=== PATIENT | male | born 1960 | race Caucasian/White ===

== ENCOUNTER 2024-06-03 16:15 | Inpatient (IN) | payer BC, SELFPAY ==
[2024-06-03] VITALS (19 sets, daily range): BP systolic 133–172; BP diastolic 81–109; PULSE 63–88; RESP 11–23; TEMP 36.3; O2SAT 90–100
--- NOTE | ~2024-06-03 | CT_ITS ---
EXAMINATION: CTA [facility] DATE: 06/03/2024 20:21 INDICATION: TECHNIQUE: Computed tomography angiography (CTA) of the lower extremities was performed with 100 mL O mnipaque-350 intravenous contrast timed to evaluate the pulmonary arteries. Coronal maximum intensity projection 3D-reconstructions were created by the technologist. Automated exposure control and itera tive reconstruction technique were employed. Exam dose: 831.06 mGy-cm total exam DLP. COMPARISON: None. FINDINGS: There is atherosclerotic calcification of the included distal abdominal aorta as well as th e common, internal and external iliac arteries, common femoral arteries and femoral arteries. No sign ificant luminal stenosis or occlusion of these vessels. The popliteal arteries and the trifurcation arteries are intact with three-vessel arterial runoff int o both distal lower legs. The dorsalis pedis and posterior tibial arteries are intact at the feet. IMPRESSION: Atherosclerotic calcifications but no significant arterial stenosis or occlusion of the lower extremities Reviewed, dictated and finalized at [facility]. Reviewed, dictated and finalized at [facility]. 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
--- NOTE | ~2024-06-03 | CT_ITS ---
EXAMINATION: CTA chest abdomen pelvis DATE: 06/03/2024 20:21 INDICATION: Chest pain. Rule out aortic dissection TECHNIQUE: Computed tomography (CT) of the chest was performed with 100 CC Omnipaque 350 intravenous contrast. Automated exposure control and iterative reconstruction technique were employed. Exam dose: 958.24 mGy-cm total exam DLP. COMPARISON: None FINDINGS: Normal heart size. Prominent coronary artery calcifications. No pericardial effusion. No pl eural effusion. No hilar or mediastinal mass lesion or lymphadenopathy. No thoracic aortic aneurysm or dissection. Prominent bulla in the azygos lobe. Occasional bilateral smaller bullae. No pulmonary infiltrate or consolidation or pulmonary mass lesion is noted. There is atherosclerotic calcification but normal caliber of the abdominal aorta, common iliac arteri es and common femoral and proximal femoral arteries. There is no abdominal aortic dissection or aneur ysm. The liver, gallbladder, bile ducts, pancreas, pancreatic duct, spleen, and adrenal glands are unremar kable. There are 2 nonobstructing right renal calculi, the largest measuring 5.7 x 8.6 mm low-attenuation 12 18 Hounsfield units. There is a several millimeter nonobstructing left renal calculus. No ureteral ca lculus or hydroureteronephrosis is noted on either side. The urinary bladder and prostate gland are u nremarkable. No intraperitoneal or retroperitoneal or pelvic mass lesion or adenopathy or ascites. Normal appendix. No bowel obstruction, bowel wall thickening, pneumatosis or intraperitoneal free air . Minimal colonic diverticulosis, without evidence of diverticulitis. No suspicious osteolytic or osteoblastic lesions. IMPRESSION: No thoracic or abdominal aortic aneurysm or dissection Nonobstructive bilateral nephrolithiasis Normal appendix Reviewed, dictated and finalized at [facility]. Reviewed, dictated and finalized at [facility]. 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
--- NOTE | ~2024-06-03 | XR_ITS ---
XR chest 2V DATE: 06/03/2024 16:52 INDICATION: Hypertension TECHNIQUE: PA and lateral views COMPARISON: None FINDINGS: Normal heart size. No hilar or mediastinal enlargement. Azygos lobe, normal variant. Mild bilateral hyperinflation. No pulmonary infiltrate or consolidation, pleural effusion or pulmonar y vascular congestion or pneumothorax is detected. Old healed anterolateral left fifth rib fracture. IMPRESSION: Mild bilateral hyperinflation; otherwise no active cardiopulmonary disease Reviewed, dictated and finalized at [facility]. ETING SYSTEMS ANALYST
--- NOTE | 2024-06-03 16:18 | ECG_ITS ---
Test Date: 2024-06-03 16:23:19 Measurements Intervals [place] Rate: 78 P: 69 [place]: 169 QRS: -53 QRSD: 118 T: 58 QT: 394 QTc: 451 Interpretive Statements SINUS RHYTHM WITH FREQUENT VENTRICULAR PREMATURE COMPLEXES IN A BIGEMINAL PATTERN POSSIBLE RIGHT VENTRICULAR CONDUCTION DELAY [RSR (QR) IN V1/V2] LEFT ANTERIOR FASCICULAR BLOCK [QRS AXIS <= -45, QR IN I, RS IN II] NONSPECIFIC ST ELEVATION [0.05+ mV ST ELEVATION] No previous ECG available for comparison Electronically Signed On 06-03-2024 18:40:26 [employer]THLETIC INSTRUCTOR by Julio Shultz M.D.
[2024-06-03] MEDS: ASPIRIN 81 MG CHEWABLE TABLET 324 MG PO (16:36)
[2024-06-03 16:44] LABS: Basophils Absolute Auto 0.1 K/mm3 (0.0-0.1); Basophils Percent Auto 0.7 % (0.2-1.2); Eosinophils Absolute Auto 0.2 K/mm3 (0-0.3); Eosinophils Percent Auto 1.2 % (0-4.4); Hematocrit 42.5 % (42.0-52.0); Hemoglobin 14.6 g/dL (14.0-18.0); Immature Granulocyte Absolute 0.03 K/mm3 (0.00-0.031); Immature Granulocyte Percent A 0.2 % (0-0.5); Lymphocytes Absolute Auto 2.72 K/mm3 (0.9-3.2); Lymphocytes Percent Auto 22.3 % (18.3-44.2); Mean Corpuscular HGB Conc 34.4 g/dl (32-36); Mean Corpuscular Hemoglobin 30.9 pg (26-34); Mean Platelet Volume 8.9 fl (7.4-10.4); Monocytes Absolute Auto 0.6 K/mm3 (0.1-0.6); Monocytes Percent Auto 4.9 % (2.6-8.5); Neutrophils Absolute Auto 8.6 K/mm3 (1.3-6.7); Neutrophils Percent Auto 70.7 % (45.5-73.1); Platelet Count Result 192 k/mm3 (150-375); Red Blood Count 4.72 M/mm3 (4.6-6.20); Red Cell Distribution Width 12.3 % (11.5-14.5); White Blood Count 12.2 K/mm3 (4.5-10.0)
[2024-06-03 16:55] LABS: Alanine Aminotransferase 20 U/L (6-50); Albumin Level 4.5 g/dL (3.5-5.1); Alkaline Phosphatase 74 U/L (38-126); Anion Gap 4 mmol/L (4-12); Aspartate Amino Transferase 31 U/L (17-59); Bilirubin,Total 1.1 mg/dL (0.2-1.3); Blood Urea Nitrogen 15 mg/dL (9-20); Calcium 9.3 mg/dL (8.4-10.2); Carbon Dioxide 27 mmol/L (22-30); Chloride 106 mmol/L (98-107); Estimated CRCL calculation 94 ml/min; Estimated Glomerular Filt Rate > 60; Glucose 128 mg/dL (65-110); Lipase 54 U/L (23-300); Potassium 3.6 mmol/L (3.4-5.0); Sodium 137 mmol/L (137-145)
[2024-06-03 17:01] LABS: Partial Thromboplastin Time 29.1 Seconds (22.3-36.8); Prothrombin Time 13.4 Seconds (11.1-14.7)
[2024-06-03 17:04] LABS: D Dimer 0.28 ug/mL (<0.48)
[2024-06-03 17:07] LABS: Troponin I 0.316 ng/mL (0.000-0.034)
[2024-06-03 17:15] LABS: Magnesium 1.7 mg/dL (1.6-2.3); Phosphorus 3.3 mg/dL (2.5-4.5)
--- NOTE | 2024-06-03 19:16 | ECG_ITS ---
Test Date: 2024-06-03 19:23:16 Measurements Intervals [place] Rate: 67 P: 6 [place]: 178 QRS: -30 QRSD: 114 T: 5 QT: 397 QTc: 422 Interpretive Statements SINUS RHYTHM BORDERLINE LEFT AXIS DEVIATION [QRS AXIS < -20] INCOMPLETE RIGHT BUNDLE BRANCH BLOCK [90+ ms QRS DURATION, TERMINAL R IN V1/V2, 40+ ms S IN I/aVL/V4/V5/V6] MODERATE T-WAVE ABNORMALITY, CONSIDER LATERAL ISCHEMIA [-0.1+ mV T WAVE IN I/aVL/V5/V6] Compared to ECG 06/03/2024 16:23:19 T-wave abnormality now present Possible ischemia now present Ventricular premature complex(es) no longer present Left anterior fascicular block no longer present Electronically Signed On 06-03-2024 21:05:38 [employer] by Julio Shultz M.D.
[2024-06-03] MEDS: diphenhydrAMINE HCl INJ 50 MG/ML VIAL IV PUSH (19:30)
[2024-06-03] MEDS: HYDROCORTISONE SODIUM SUCCINATE 100 MG/2 ML VIAL 200 MG IV PUSH (19:30)
--- NOTE | 2024-06-03 20:47 | ED.CHESTPAIN ---
HPI - Chest Pain General Chief Complaint: Chest Pain Stated Complaint: chest pain Time Seen by Provider: 06/03/24 16:29 History of Present Illness HPI narrative: 64-year-old male with a past medical history including hypertension not present any kind of medications. Presents to the emergency room with chief complaint of chest pain, chest tightness, bilateral arm pain, lightheadedness, left-sided knee pain. Patient states that symptoms were onset about 1 hour prior to arrival. He has not had anything like them to him before. No history of heart attacks, coronary disease, aortic disease. Does not take any medications presently. States his pain felt better after burping. Denies any numbness or paresthesias presently states that his pain is significantly improved upon arrival to the emergency department. Endorses vague knee discomfort for last week without any trauma or injuries. Has been ambulating unassisted. He states he has been installing ceiling fans at home and attributed his bilateral hand and elbow numbness to the repetitive movements. Related Data Allergies Allergy/AdvReac Type Severity Reaction Status Date / Time No Known Allergies Allergy Unverified 11/04/11 19:19 Review of Systems Review of Systems: As reviewed above in [facility] Social History Social History Smoking status: Former smoker Smoking end date: 06/13/15 Alcohol intake: current Exam Narrative: GENERAL: [Well-appearing, well-nourished, and in no acute distress.] HEAD: [Normocephalic, atraumatic.] EYES: [PERRLA and EOMI.] ENT: Nares clear, no rhinorrhea or epistaxis. Mucous membranes moist. NECK: Supple. CHEST: [Clear to auscultation. No respiratory distress.] HEART: [Regular rate and rhythm]. No murmur heard. 2+ radial pulses, bounding pulses in both arms, right-sided tibial pulse and dorsalis pedis pulse intact, left-sided dorsalis pedis pulse is absent to palpation, otherwise warm extremity with good posterior tibialis pulse no overlying skin changes or discoloration ABDOMEN: [Soft, nondistended], [nontender], [No rigidity or guarding] EXTREMITIES: Normal range of motion. [No edema.] SKIN: Warm, dry, no rash. NEURO: [No focal deficits]. Alert and oriented [x3.] PSYCH: [Normal mood and affect.] Course Vital Signs Vital signs: Vital Signs Temperature 36.3 C L 06/03/24 16:25 Pulse Rate 76 06/03/24 16:25 Respiratory Rate 17 06/03/24 16:25 Blood Pressure 170/96 H 06/03/24 16:25 Pulse Oximetry 99 06/03/24 16:25 Oxygen Delivery Room Air 06/03/24 16:25 Temperature 36.3 C L 06/03/24 16:25 Pulse Rate 63 06/03/24 17:47 Respiratory Rate 14 06/03/24 17:47 Blood Pressure 133/81 06/03/24 17:47 Pulse Oximetry 100 06/03/24 17:47 Oxygen Delivery Room Air 06/03/24 16:42 Procedures Other Procedure Procedure 1: Other Procedure: Procedure note: Bedside aortic ultrasound, bedside vascular doppler of bilateral upper and lower extremities Indications: Concern for vascular emergency, rule out dissection/occlusion Bedside ultrasound with attention to the vasculature and aorta. Conducted thorough investigative scan including axial and longitudinal views of the thorax, abdomen, pelvis and the major blood vessels including bilateral femoral, bilateral popliteal in bilateral dorsalis pedis pulses, thoracic and abdominal aorta. Dopplers were obtained in all limbs and he does still have some diminished Doppler pulse, but it is present in the left lower extremity DR and palpable pulse in the remaining 3 extremities. Warm extremity otherwise with good collateral circulation. No obvious dissection flap, no aneurysmal dilatation over the abdominal or thoracic aorta, no pericardial effusions, no hyperdynamic heart EF or significant reduced ejection fraction. MDM - Chest Pain MDM Narrative Medical decision making narrative: 64-year-old male presenting with vague complaints of chest tightness, chest pain, bilateral hand paresthesias, lightheadedness, left-sided knee pain. Symptoms on off for the last week, chest tightness and chest pain began 1 hour prior to arrival. No history of coronary disease, no history of aortic disease. Has hypertension but is not on any medications presently. On physical examination is concerning findings including an absent dorsalis pedis pulse was left lower extremity although there appears to be some collateral circulation as the extremities warm and well perfused with good coloration. Pulses in the remaining 3 limbs are bounding. He is hypertensive with a blood pressure 170/96, he states that this is higher than it has ever been. No tachycardia, fever, hypoxia. Clear breath sounds throughout, normal neurological examination. Concern presently for his chest discomfort and elevated blood pressure with an absent pulses for potential aortic or vascular pathology such as dissection or aneurysm, stenosis or occlusion. Cardiac etiology such as ACS is also possible especially in setting of an uncontrolled hypertension. Workup was ordered including serial troponins, chest x-ray, EKG, CT angiography of his chest abdomen pelvis and runoff to the bilateral extremities ordered. I was informed that patient and family at bedside the patient has an anaphylactic reaction to contrast. I discussed premedication treatments including steroids and Benadryl but we did need to scan to rule out severe or emergent pathology such as vascular or aortic emergencies. Patient declined getting the scan at this time and his family was in agreement. Patient's laboratory studies started to return and he has a markedly elevated troponin initial at 0.316. Minor white count but otherwise unremarkable electrolytes, normal renal and hepatic function panel. Negative lipase. Hyperinflation on the chest x-ray otherwise no active pulmonary disease. I went and re-evaluated the patient and he had no further chest pain or symptoms while here in the emergency department and was adamantly refusing his CT angiography at this time. Requested I try other modalities. Procedure note: Bedside aortic ultrasound, bedside vascular doppler of bilateral upper and lower extremities Indications: Concern for vascular emergency, rule out dissection/occlusion Bedside ultrasound with attention to the vasculature and aorta. Conducted thorough investigative scan including axial and longitudinal views of the thorax, abdomen, pelvis and the major blood vessels including bilateral femoral, bilateral popliteal in bilateral dorsalis pedis pulses, thoracic and abdominal aorta. Dopplers were obtained in all limbs and he does still have some diminished Doppler pulse, but it is present in the left lower extremity DR and palpable pulse in the remaining 3 extremities. Warm extremity otherwise with good collateral circulation. No obvious dissection flap, no aneurysmal dilatation over the abdominal or thoracic aorta, no pericardial effusions, no hyperdynamic heart EF or significant reduced ejection fraction. I did consult and speak to the vascular surgeon over at [facility] Dr. Sawant on-call. He recommended getting a CT angiography emergently regardless of patient's qualms about contrast induced anaphylaxis as he potentially has a life or limb threatening emergencies. Family requested I trying transfer him to [facility] to obtain the scans as they have the surgical capabilities for any dissection. I did oblige although informed them that this would be a significant delay in care and not advisable. After several discussions with the family and the patient they did elect to obtain the CT angiography here after considerable delay. Patient was given pre treatment with hydrocortisone 200 mg IV and 50 mg of IV Benadryl. Another road block was when I try to have the patient pushed radiology the interventional radiology tech on-call declined scanning him per our protocol at [facility] needing 4 hours of for preparation with medications even for emergent protocol. I spoke to the on-call radiologist Dr. Mcfarlane and relayed my concerns to them. Recommendations were to proceed with scan if life for limb-threatening or temp transfer to [facility] to allow the contrast media preparatory medications to take effect prior to getting scanned over their facility. Spoke to the [facility] transfer center and was connected to the emergency department physician Dr. Zavala who raised significant concerns about the transfer with this plan in mind. I concur and would prefer to have the CT angiography done here emergently regardless of risk with anaphylaxis. Thus I did attempt to speak with Radiology and interventional radiology tech again and with preparations and hand including respiratory support and as available respiratory supplies and epinephrine patient was pushed to the CT scanner for CT angiography of his chest abdomen pelvis and runoff to the legs. Patient tolerated the CT scan well and had no adverse reaction, breathing comfortably upon reassessment. Still asymptomatic without any chest pain or tightness. CT angiography was read stat and emergently by our on-call radiologist and confirmed no dissection, aneurysm, stenosis or any occlusive vascular emergency in the CT imaging. Patient and family were relieved by these news however I did inform them that the repeat troponin had come back at this time and almost had a 10 times increase in value and is now 2.62 despite being asymptomatic in the emergency department. Repeat EKG shows dynamic changes in the lateral leads which raises concern for potential occlusive VT in the lateral or diagonal branches. Spoke to the on-call geophysicist Dr. Chung and relayed the imaging findings, EKG results over the phone and patient's assessment. She concurred that patient does have a likely occlusive VT although he is not have any chest pain and decision made to trend troponins on a heparin infusion and cath him in the morning unless he has developing chest pain or any new concerning features to cath him overnight. This information will be relayed to the hospitalist. Family is agreeable to admission here to the hospital to the intermediate care unit. Spoke to the hospitalist Dr. Gregory over the phone who went over the imaging studies, clinical assessment and plan of care specially with Interventional Cardiology being on board with catheterization tomorrow morning or earlier if he develops any symptoms or chest pain. Patient was accepted to the IMU at this time. Medical Records Data Attestation: I reviewed the patient's medical records. Lab Data Attestation: I reviewed the patient's lab results. 06/03/24 16:37 06/03/24 16:37 Labs: Lab Results 06/03/24 06/03/24 Range/Units 16:37 19:19 WBC 12.2 H (4.5-10.0) K/mm3 RBC 4.72 (4.6-6.20) M/mm3 Hgb 14.6 (14.0-18.0) g/dL Hct 42.5 (42.0-52.0) % MCV 90.0 (80-100) fl MCH 30.9 (26-34) pg MCHC 34.4 (32-36) g/dl RDW 12.3 (11.5-14.5) % Plt Count 192 (150-375) k/mm3 MPV 8.9 (7.4-10.4) fl Immature Gran % (Auto) 0.2 (0-0.5) % Neut % (Auto) 70.7 (45.5-73.1) % Lymph % (Auto) 22.3 (18.3-44.2) % Reagan % (Auto) 4.9 (2.6-8.5) % Eos % (Auto) 1.2 (0-4.4) % Baso % (Auto) 0.7 (0.2-1.2) % Lymph # (Auto) 2.72 (0.9-3.2) K/mm3 Reagan # (Auto) 0.6 (0.1-0.6) K/mm3 Eos # (Auto) 0.2 (0-0.3) K/mm3 Baso # (Auto) 0.1 (0.0-0.1) K/mm3 Abs Immat Gran (auto) 0.03 (0.00-0.031) K/mm3 Absolute Neuts (auto) 8.6 H (1.3-6.7) K/mm3 Absolute Nucleated RBC 0.000 (0.0-0.012) K/mm3 Nucleated RBC % 0.0 (0.0-0.2) % PT 13.4 (11.1-14.7) Seconds INR 1.0 APTT 29.1 (22.3-36.8) Seconds D-Dimer 0.28 (<0.48) ug/mL Sodium 137 (137-145) mmol/L Potassium 3.6 (3.4-5.0) mmol/L Chloride 106 (98-107) mmol/L Carbon Dioxide 27 (22-30) mmol/L Anion Gap 4 (4-12) mmol/L BUN 15 (9-20) mg/dL Creatinine 0.80 (0.7-1.3) mg/dL Estim Creat Clear Calc 94 ml/min Estimated GFR > 60 (59 - ) Glucose 128 H (65-110) mg/dL Calcium 9.3 (8.4-10.2) mg/dL Phosphorus 3.3 (2.5-4.5) mg/dL Magnesium 1.7 (1.6-2.3) mg/dL Total Bilirubin 1.1 (0.2-1.3) mg/dL AST 31 (17-59) U/L ALT 20 (6-50) U/L Alkaline Phosphatase 74 (38-126) U/L Troponin I 0.316 H* 2.620 H* D (0.000-0.034) ng/mL Total Protein 8.0 (6.3-8.2) g/dL Albumin 4.5 (3.5-5.1) g/dL Lipase 54 (23-300) U/L Imaging Data Attestation: I personally reviewed and interpreted this imaging study as follows: My impression: Impressions Chest X-Ray 06/03/24 17:02 IMPRESSION: Mild bilateral hyperinflation; otherwise no active cardiopulmonary disease Chest/Abdomen/Pelvis CTA 06/03/24 20:37 IMPRESSION: No thoracic or abdominal aortic aneurysm or dissection Nonobstructive bilateral nephrolithiasis Normal appendix Lower Extremity CTA 06/03/24 20:47 IMPRESSION: Atherosclerotic calcifications but no significant arterial stenosis or occlusion of the lower extremities Critical Care Time Critical Care Time Critical Care Time: Yes Total Critical Care Time: 150 Discharge Plan Discharge Clinical Impression: Acute non-ST elevation myocardial infarction (NSTEMI), Atypical chest pain, Hypertension Patient Disposition: Still a Patient Condition: Serious Patient Language: Jamaican Follow-up/Referrals: PHYSICIAN NOT ON STAFF,NONSTAFF [Primary Care Provider] - Time of Disposition: 21:36
--- NOTE | 2024-06-03 20:52 | ECG_ITS ---
Test Date: 2024-06-03 21:17:01 Measurements Intervals [place] Rate: 66 P: -1 [place]: 174 QRS: -39 QRSD: 118 T: -3 QT: 408 QTc: 429 Interpretive Statements SINUS RHYTHM MARKED LEFT AXIS DEVIATION [QRS AXIS < -30] INCOMPLETE RIGHT BUNDLE BRANCH BLOCK [90+ ms QRS DURATION, TERMINAL R IN V1/V2, 40+ ms S IN I/aVL/V4/V5/V6] MODERATE T-WAVE ABNORMALITY, CONSIDER ANTEROLATERAL ISCHEMIA [-0.1+ mV T WAVE IN V3-V6] Compared to ECG 06/03/2024 19:23:16 No significant changes Electronically Signed On 06-05-2024 14:50:09 [employer] INSPECTOR by Wilfred Wang M.D.
[2024-06-03] MEDS: HEPARIN SOD/D5W 100 UNITS/ML 25,000 UNITS/250 ML BAG 10 UNITS IV CONT (21:14)
[2024-06-03] MEDS: HEPARIN SODIUM 5,000 UNITS/ML VIAL 4000 UNITS IV PUSH (21:24)
[2024-06-03 21:52] LABS: Basophils Absolute Auto 0.1 K/mm3 (0.0-0.1); Basophils Percent Auto 0.3 % (0.2-1.2); Eosinophils Percent Auto 0.1 % (0-4.4); Hematocrit 43.8 % (42.0-52.0); Hemoglobin 15.3 g/dL (14.0-18.0); Immature Granulocyte Absolute 0.11 K/mm3 (0.00-0.031); Immature Granulocyte Percent A 0.5 % (0-0.5); Lymphocytes Absolute Auto 0.98 K/mm3 (0.9-3.2); Lymphocytes Percent Auto 4.5 % (18.3-44.2); Mean Corpuscular HGB Conc 34.9 g/dl (32-36); Mean Corpuscular Hemoglobin 31.1 pg (26-34); Mean Platelet Volume 9.2 fl (7.4-10.4); Monocytes Absolute Auto 0.2 K/mm3 (0.1-0.6); Neutrophils Absolute Auto 20.3 K/mm3 (1.3-6.7); Neutrophils Percent Auto 93.6 % (45.5-73.1); Platelet Count Result 227 k/mm3 (150-375); Red Blood Count 4.92 M/mm3 (4.6-6.20); Red Cell Distribution Width 12.3 % (11.5-14.5); White Blood Count 21.7 K/mm3 (4.5-10.0)
[2024-06-03 22:03] LABS: Prothrombin Time 13.7 Seconds (11.1-14.7)
[2024-06-03 22:31] LABS: Partial Thromboplastin Time > 200.0 Seconds (22.3-36.8)
--- NOTE | 2024-06-03 22:46 | P.HP_ITS ---
H&P: HPI History of Present Illness Date/Time: 06/03/24 22:46 Chief Complaint: Chest discomfort Narrative: This is a 64-year-old male with no significant past medical history, according to patient he is supposed to be started on medication for his uncontrolled blood pressure which has been recently noted at his primary care physician, patient has had on and off blurry vision, lightheadedness, bilateral upper extremity paresthesia. Today patient presented to the emergency room with similar problems and chest discomfort. Preliminary workup was significant for elevated troponin, patient had a blood pressure systolic in the 170s over diastolic in the 100's. Patient was ruled out for acute dissection of the aorta. Patient has been admitted for further evaluation management and treatment. XR chest 2V DATE: 06/03/2024 16:52 INDICATION: Hypertension TECHNIQUE: PA and lateral views COMPARISON: None FINDINGS: Normal heart size. No hilar or mediastinal enlargement. Azygos lobe, normal variant. Mild bilateral hyperinflation. No pulmonary infiltrate or consolidation, pleural effusion or pulmonary vascular congestion or pneumothorax is detected. Old healed anterolateral left fifth rib fracture. IMPRESSION: Mild bilateral hyperinflation; otherwise no active cardiopulmonary disease EXAMINATION: CTA chest abdomen pelvis DATE: 06/03/2024 20:21 INDICATION: Chest pain. Rule out aortic dissection TECHNIQUE: Computed tomography (CT) of the chest was performed with 100 CC Omnipaque 350 intravenous contrast. Automated exposure control and iterative reconstruction technique were employed. Exam dose: 958.24 mGy-cm total exam DLP. COMPARISON: None FINDINGS: Normal heart size. Prominent coronary artery calcifications. No pericardial effusion. No pleural effusion. No hilar or mediastinal mass lesion or lymphadenopathy. No thoracic aortic aneurysm or dissection. Prominent bulla in the azygos lobe. Occasional bilateral smaller bullae. No pulmonary infiltrate or consolidation or pulmonary mass lesion is noted. There is atherosclerotic calcification but normal caliber of the abdominal aorta, common iliac arteries and common femoral and proximal femoral arteries. There is no abdominal aortic dissection or aneurysm. The liver, gallbladder, bile ducts, pancreas, pancreatic duct, spleen, and adrenal glands are unremarkable. There are 2 nonobstructing right renal calculi, the largest measuring 5.7 x 8.6 mm low-attenuation 1218 Hounsfield units. There is a several millimeter nonobstructing left renal calculus. No ureteral calculus or hydroureteronephrosis is noted on either side. The urinary bladder and prostate gland are unremarkable. No intraperitoneal or retroperitoneal or pelvic mass lesion or adenopathy or ascites. Normal appendix. No bowel obstruction, bowel wall thickening, pneumatosis or intraperitoneal free air. Minimal colonic diverticulosis, without evidence of diverticulitis. No suspicious osteolytic or osteoblastic lesions. IMPRESSION: No thoracic or abdominal aortic aneurysm or dissection Nonobstructive bilateral nephrolithiasis Normal appendix EXAMINATION: CTA [facility] DATE: 06/03/2024 20:21 INDICATION: TECHNIQUE: Computed tomography angiography (CTA) of the lower extremities was performed with 100 mL Omnipaque-350 intravenous contrast timed to evaluate the pulmonary arteries. Coronal maximum intensity projection 3D-reconstructions were created by the technologist. Automated exposure control and iterative reconstruction technique were employed. Exam dose: 831.06 mGy-cm total exam DLP. COMPARISON: None. FINDINGS: There is atherosclerotic calcification of the included distal abdominal aorta as well as the common, internal and external iliac arteries, common femoral arteries and femoral arteries. No significant luminal stenosis or occlusion of these vessels. The popliteal arteries and the trifurcation arteries are intact with three- vessel arterial runoff into both distal lower legs. The dorsalis pedis and posterior tibial arteries are intact at the feet. IMPRESSION: Atherosclerotic calcifications but no significant arterial stenosis or occlusion of the lower extremities Review of Systems Review of Systems: Chest pain, bilateral upper extremity paresthesia, blurry vision, uncontrolled blood pressure. PENDING SALE TO [facility] Social History Social History Smoking status: Former smoker Smoking end date: 06/13/15 Alcohol intake: current Meds Home Medications and Allergies Allergies Allergy/AdvReac Type Severity Reaction Status Date / Time No Known Allergies Allergy Unverified 11/04/11 19:19 Vital Signs Vital Signs - 24 hr 06/03/24 16:25 06/03/24 16:42 06/03/24 17:47 Temperature 97.3 F L Pulse Rate 76 63 Respiratory Rate 17 14 Blood Pressure 170/96 H 133/81 Pulse Oximetry 99 100 Oxygen Delivery Room Air Room Air 06/03/24 19:00 06/03/24 19:02 06/03/24 19:15 Temperature Pulse Rate 66 68 66 Respiratory Rate 11 L 13 13 Blood Pressure 162/100 H Pulse Oximetry 100 100 100 Oxygen Delivery 06/03/24 19:17 06/03/24 19:40 06/03/24 20:15 Temperature Pulse Rate 69 64 83 Respiratory Rate 13 11 L 13 Blood Pressure 169/109 H Pulse Oximetry 100 100 100 Oxygen Delivery 06/03/24 20:17 06/03/24 20:31 06/03/24 20:34 Temperature Pulse Rate 88 77 72 Respiratory Rate 23 H 19 18 Blood Pressure 172/96 H 161/90 H Pulse Oximetry 99 100 Oxygen Delivery 06/03/24 20:49 06/03/24 21:28 06/03/24 21:30 Temperature Pulse Rate 67 69 65 Respiratory Rate 11 L 18 13 Blood Pressure Pulse Oximetry 98 98 97 Oxygen Delivery 06/03/24 21:31 06/03/24 21:45 06/03/24 21:46 Temperature Pulse Rate 70 74 75 Respiratory Rate 15 14 13 Blood Pressure 149/95 H 159/98 H Pulse Oximetry 90 96 93 Oxygen Delivery 06/03/24 22:00 06/03/24 22:01 Temperature Pulse Rate 76 75 Respiratory Rate 14 16 Blood Pressure 162/91 H Pulse Oximetry 98 91 Oxygen Delivery Exam Narrative: Patient is laying in a stretcher Const: General: comfortable, no acute distress, well developed, alert, awake and average body habitus Nutritional Appearance: average body habitus Orientation/consciousness: patient oriented x3 Other: Well-appearing HENMT: Head: normal to inspection, normocephalic and atraumatic Ears: hearing grossly normal bilaterally Face/Nose/Sinus: normal facial exam Face and sinus: normal facial exam Eyes: General: appearance normal, both eyes and all related structures Pupils: Equal, round and reactive pupils present EOM: EOMs intact bilaterally Neck: Neck: full ROM, no lymphadenopathy and no JVD Thyroid: thyroid normal Lymphatic: no lymphadenopathy noted Resp: Effort & Inspection: normal respiratory effort and able to speak in complete sentences Auscultation: clear to auscultation bilaterally Cardio: Jugular venous distension: no JVD Rate: regular rate Rhythm: regular rhythm Heart sounds: S1 normal heart sound present and S2 normal heart sound present GI: GI Palp: Yes Soft to palpation and Yes No hepatosplenomegaly present : General: Yes deferred Skin: Rashes: no rashes Wounds: no wounds Neuro: General: patient oriented x3 and CN's II-XI intact bilaterally Cranial nerves: Yes CN's II-XII intact bilaterally and Yes Equal, round and reactive pupils present Cognition (Neuro): normal cognition Speech: normal speech Gait exam (Neuro): Normal gait present Motor exam (neuro): 5/5 motor strength present throughout Extrem: General: normal to inspection, full ROM, no joint enlargement and no pedal edema H&P: Results Labs Labs: Short CBC 06/03/24 06/03/24 Range/Units 16:37 21:46 WBC 12.2 H 21.7 H (4.5-10.0) K/mm3 Hgb 14.6 15.3 (14.0-18.0) g/dL Hct 42.5 43.8 (42.0-52.0) % Plt Count 192 227 (150-375) k/mm3 BMP 06/03/24 16:37 Sodium 137 Potassium 3.6 Chloride 106 Carbon Dioxide 27 BUN 15 Creatinine 0.80 Glucose 128 H Calcium 9.3 Cardiac Enzymes 06/03/24 06/03/24 Range/Units 16:37 19:19 Troponin I 0.316 H* 2.620 H* D (0.000-0.034) ng/mL Liver Function 06/03/24 Range/Units 16:37 Total Bilirubin 1.1 (0.2-1.3) mg/dL AST 31 (17-59) U/L ALT 20 (6-50) U/L Alkaline Phosphatase 74 (38-126) U/L Albumin 4.5 (3.5-5.1) g/dL Assessment and Plan Assessment and plan (1) Acute non-ST elevation myocardial infarction (NSTEMI): Code(s): I21.4 - Non-ST elevation (NSTEMI) myocardial infarction Status: Acute Assessment and Plan: Admit to IMU Started on heparin drip Continue to trend troponin Patient reported contrast allergy started on prep Plans for left heart catheterization in a.m. Interventional cardiology consult (2) Hypertension: Code(s): I10 - Essential (primary) hypertension Status: Acute Assessment and Plan: Continue to monitor Echocardiogram in a.m. Will start amlodipine (3) Atypical chest pain: Code(s): R07.89 - Other chest pain Status: Acute Assessment and Plan: Likely secondary to all of the above Currently chest pain free Hospitalist MIPS Advance Care Plan I have confirmed that the patient's Advanced Care Plan is present, code status is documented, or surrogate decision maker is listed in patient medical record.: Yes Medication Reconciliation I have utilized all available resources to obtain, update and review the patients current medications (includes all prescriptions, OTC, herbals, cannabis, and nutritional supplements).: Yes
[2024-06-03] MEDS: predniSONE 40 MG, predniSONE 10 MG 50 MG PO (23:10)
[2024-06-03 23:24] LABS: Prothrombin Time 13.6 Seconds (11.1-14.7)
[2024-06-03 23:26] LABS: Partial Thromboplastin Time 47.6 Seconds (22.3-36.8)
[2024-06-04] VITALS (25 sets, daily range): BP systolic 129–168; BP diastolic 75–91; PULSE 68–128; RESP 13–21; TEMP 36.4–37.1; O2SAT 94–99; BMI 27.4
--- NOTE | 2024-06-04 | ECHO_ITS ---
Patient Info Name: Fabián Jensen Age: 64 years : 1960 Gender: Male Ht: 73 in Wt: 207 lbs BSA: 2.21 m2 HR: 70 bpm BP: 168 / 88 mmHg Technical Quality: Fair Exam Date: 06/04/2024 11:21 AM Exam Location: Echo Lab Patient Status: Inpatient Admit Date: 06/03/2024 Staff Ordering Physician: Brenden Saucedo MD Dry Lumber Grader: Eloise Rose RDCS Attending Provider: Sarai Jim MD Exam Type: CA echo doppler color flow Study Info Indications - NSTEMI Complete two-dimensional, color flow and Doppler transthoracic echocardiogram is performed. Summary 1. Complete two-dimensional, color flow and Doppler transthoracic echocardiogram is performed. 2. The left ventricle is normal in size with mildly reduced systolic function. There is severe concentric left ventricular hypertrophy. The left ventricular ejection fraction is visually estimated to be 45-50%. The apex, mid to distal anterior, mid to distal inferoseptum, distal inferior, and anteroseptal yusuf are hypokinetic. 3. There is moderate pericardial effusion. 4. There is no significant valvular disease. Left Ventricle The left ventricle is normal in size with mildly reduced systolic function. There is severe concentric left ventricular hypertrophy. The left ventricular ejection fraction is visually estimated to be 45-50%. The apex, mid to distal anterior, mid to distal inferoseptum, distal inferior, and anteroseptal yusuf are hypokinetic. Right Ventricle The right ventricle is normal in size and systolic function. Left Atria The left atrium is normal size. Right Atria The right atrium is normal size. Atrial Septum The atrial septum visually appears intact. Aortic Valve The aortic valve is trileaflet and opens well. There is no aortic regurgitation. Pulmonic Valve The pulmonic valve is not well visualized. There is no color Doppler evidence of pulmonic regurgitation. Mitral Valve The mitral valve is normal. There is no mitral regurgitation. Tricuspid Valve The tricuspid valve is grossly normal. There is trace tricuspid regurgitation. Pericardium/Pleural There is moderate pericardial effusion. Inferior Vena Cava Normal inferior vena cava with >50% collapse upon inspiration consistent with normal right atrial pressure, 3 mmHg. Aorta The aortic root at the level of the sinus of Valsalva is 3.4 cm in diameter. Left Ventricular Outflow Tract Name Value Normal LVOT 2D LVOT Diameter 2.4 cm LVOT Doppler LVOT Peak Gradient 3 mmHg LVOT Mean Gradient 2 mmHg LVOT VTI 22 cm LVOT VTI/AV VTI Ratio 0.9 LVOT Stroke Volume 100 ml LVOT CO 19.6 l/min LVOT CI 8.9 l/min/m2 Pulmonic Valve Name Value Normal RVOT Doppler RVOT Peak Gradient 3 mmHg PV Doppler PV Peak Gradient 3 mmHg Mitral Valve Name Value Normal MV Doppler MV Peak Gradient 4 mmHg MV Mean Gradient 1 mmHg MV Decel [place] 259 cm/s2 MV PHT 67 ms MV Area (PHT) 3.3 cm2 4.0-5.0 MV Area (Cont Eq VTI) 3.7 cm2 MV Diastolic Function MV E Peak Velocity 60 cm/s MV A Peak Velocity 87 cm/s MV E/A 0.7 MV Decel Time 231 ms MV Annular TDI MV E/e' (Septal) 10.4 <=8.0 MV E/e' (Lateral) 8.7 <=8.0 MV E/e' (Average) 9.6 Tricuspid Valve Name Value Normal Estimated PAP/RSVP RA Pressure 3 mmHg <=5 Aorta Name Value Normal Ascending Aorta Ao Root Diameter (MM) 3.9 cm Ao Root Diam Index (MM) 1.8 cm/m2 Aortic Valve Name Value Normal AV Doppler AV Peak Velocity 127 cm/s AV Peak Gradient 6 mmHg AV Mean Gradient 4 mmHg AV VTI 25 cm AV Area (Cont Eq VTI) 3.9 cm2 >=3.0 AV Area (Cont Eq [place]) 3.3 cm2 AV Regurgitation 2D LVOT Area 4.6 cm2 Ventricles Name Value Normal LV Dimensions 2D/MM IVS Diastolic Thickness (2D) 1.4 cm 0.6-1.0 LVID Diastole (2D) 5.6 cm 4.2-5.8 LVIW Diastolic Thickness (2D) 1.6 cm 0.6-1.0 LVID Systole (2D) 3.7 cm 2.5-4.0 LVOT Diameter 2.4 cm LV Mass (2D Cubed) 389.98 g 88.00-224.00 LV Mass Index (2D Cubed) 176 g/m2 49-115 Relative Wall Thickness (2D) 0.58 LV Fractional Shortening/Ejection Fraction 2D/MM LV Fractional Shortening (2D) 34 % 25-43 LV EF (2D Teicholz) 63 % 52-72 LV Diastolic Volume (4C MOD) 154 ml LV EF (4C MOD) 55 % LV Diastolic Volume (2C MOD) 119 ml LV EF (2C MOD) 63 % LV Diastolic Volume (BP MOD) 136 ml 62-150 LV Diastolic Volume Index (BP MOD) 61 ml/m2 34-74 LV Systolic Volume (BP MOD) 59 ml 21-61 LV Systolic Volume Index (BP MOD) 27 ml/m2 11-31 LV EF (BP MOD) 57 % 52-72 LV Diastolic Length (4C) 8.6 cm LV Systolic Length (4C) 7.8 cm LV Stroke Volume (4C MOD) 85 ml Atria Name Value Normal LA Dimensions LA Dimension (MM) 4.3 cm 3.0-4.1 LA Volume (4C A-L) 29 ml LA Volume (BP A-L) 49 ml RA Dimensions RA Area (4C) 19.0 cm2 <=18.0 Report Signatures
[2024-06-04 03:41] LABS: Prothrombin Time 13.4 Seconds (11.1-14.7)
[2024-06-04 03:42] LABS: Partial Thromboplastin Time 37.1 Seconds (22.3-36.8)
[2024-06-04] MEDS: HEPARIN SODIUM 5,000 UNITS/ML VIAL 4000 UNITS IV PUSH (03:51)
[2024-06-04 04:07] LABS: Basophils Percent Auto 0.1 % (0.2-1.2); Hematocrit 41.9 % (42.0-52.0); Immature Granulocyte Absolute 0.06 K/mm3 (0.00-0.031); Immature Granulocyte Percent A 0.4 % (0-0.5); Lymphocytes Percent Auto 6.9 % (18.3-44.2); Mean Corpuscular HGB Conc 35.8 g/dl (32-36); Mean Corpuscular Hemoglobin 31.3 pg (26-34); Mean Corpuscular Volume 87.3 fl (80-100); Mean Platelet Volume 9.3 fl (7.4-10.4); Monocytes Absolute Auto 0.1 K/mm3 (0.1-0.6); Monocytes Percent Auto 0.7 % (2.6-8.5); Neutrophils Absolute Auto 14.8 K/mm3 (1.3-6.7); Neutrophils Percent Auto 91.9 % (45.5-73.1); Platelet Count Result 211 k/mm3 (150-375); Red Cell Distribution Width 12.3 % (11.5-14.5)
[2024-06-04] MEDS: predniSONE 40 MG, predniSONE 10 MG 50 MG PO ×2 (07:10→09:48)
--- NOTE | 2024-06-04 07:36 | P.CONCA_ITS ---
Assessment and Plan Assessment and plan (1) Acute non-ST elevation myocardial infarction (NSTEMI): Code(s): I21.4 - Non-ST elevation (NSTEMI) myocardial infarction Status: Acute Assessment and Plan: 1. NSTEMI-troponin elevated to 0.3--> 2 2. Hypertension-controlled 3. Former smoker-quit many years ago 4. Leukocytosis without any localizing symptoms/signs of infection; chest x-ray without any acute cardiopulmonary abnormality Plan 1. Recommend Aspirin 81 mg daily, Statin, Heparin drip 2. Cardiac catheterization in a.m. to evaluate for coronary ischemia as cause for NSTEMI. Risks and benefits discussed with patient and he agrees to proceed 3. Keep NPO for cardiac cath 3. Workup for leukocytosis per primary team History of Present Illness History of Present Illness Consult date/time: 06/04/24 07:36 Reason For Visit: NSTEMI, Atypical chest pain Narrative: 64-year-old male with medical history of hypertension, former tobacco use open (smoked many years ago and quit) presented to the ED with are bilateral upper extremity pain. Patient reports pain in both his elbows radiating down to the hands for the past 2-3 days this came on with exertion and was relieved with rest. Yesterday around 2:00 p.m. he was trying to fix a ceiling fan when this pain recurred and lasted longer than the prior episodes which prompted him to come to the ER to get checked. He said the pain lasted for about an hour before it resolved. He was started on a heparin drip. He has not had recurrence of pain since then. He states that he was told his left lower extremity pulse was weaker than his right lower extremity pulse. He denies lucina chest pain, shortness of breath, palpitations, dizziness, lower extremity edema, recent weight gain, presyncope, syncope, nausea, emesis, diaphoresis, abdominal pain, fevers, chills, cough. No family history of premature CAD. He is a former smoker and quit many years ago. He has not had any prior cardiac history or workup. Workups: WBC elevated Troponin elevated to 0.316, 2.620 EKG: Sinus rhythm, incomplete right bundle-branch block, dynamic T-wave changes in the lateral leads Chest x-ray: Mild bilateral hyperinflation; otherwise no active cardiopulmonary disease Lower extremity CTA: Atherosclerotic calcifications but no significant arterial stenosis or occlusion of the lower extremities Chest abdomen pelvis CTA:No thoracic or abdominal aortic aneurysm or dissection, Nonobstructive bilateral nephrolithiasis, Normal appendix Review of Systems 2 Review of Systems: A complete review of systems was performed and negative other than those mentioned in the [facility] Social History Social History Smoking status: Former smoker Smoking end date: 06/13/15 Alcohol intake: current Meds Home Medications and Allergies Allergies Allergy/AdvReac Type Severity Reaction Status Date / Time No Known Allergies Allergy Unverified 11/04/11 19:19 Vital Signs Vital Signs - 24 hr 06/03/24 16:25 06/03/24 16:42 06/03/24 17:47 Temperature 36.3 C L Pulse Rate 76 63 Respiratory Rate 17 14 Blood Pressure 170/96 H 133/81 Pulse Oximetry 99 100 Oxygen Delivery Room Air Room Air 06/03/24 19:00 06/03/24 19:02 06/03/24 19:15 Temperature Pulse Rate 66 68 66 Respiratory Rate 11 L 13 13 Blood Pressure 162/100 H Pulse Oximetry 100 100 100 Oxygen Delivery 06/03/24 19:17 06/03/24 19:40 06/03/24 20:15 Temperature Pulse Rate 69 64 83 Respiratory Rate 13 11 L 13 Blood Pressure 169/109 H Pulse Oximetry 100 100 100 Oxygen Delivery 06/03/24 20:17 06/03/24 20:31 06/03/24 20:34 Temperature Pulse Rate 88 77 72 Respiratory Rate 23 H 19 18 Blood Pressure 172/96 H 161/90 H Pulse Oximetry 99 100 Oxygen Delivery 06/03/24 20:49 06/03/24 21:28 06/03/24 21:30 Temperature Pulse Rate 67 69 65 Respiratory Rate 11 L 18 13 Blood Pressure Pulse Oximetry 98 98 97 Oxygen Delivery 06/03/24 21:31 06/03/24 21:45 06/03/24 21:46 Temperature Pulse Rate 70 74 75 Respiratory Rate 15 14 13 Blood Pressure 149/95 H 159/98 H Pulse Oximetry 90 96 93 Oxygen Delivery 06/03/24 22:00 06/03/24 22:01 Temperature Pulse Rate 76 75 Respiratory Rate 14 16 Blood Pressure 162/91 H Pulse Oximetry 98 91 Oxygen Delivery Exam 2 Narrative: General: Alert oriented x3, no acute distress Neck: Supple, JVD + Chest: Bilaterally clear to auscultation, no rales or rhonchi Cardiac: S1, S2 +, regular rate, regular rhythm, no murmurs or rubs Extremities: Bilateral lower extremity edema 1+, no skin rash Neurologic: Alert and oriented x3, no focal neurological deficits Results Labs and Meds 06/04/24 03:41 06/03/24 16:37 Lab results: Cardiac Enzymes 06/03/24 06/03/24 06/04/24 Range/Units 16:37 19:19 03:41 AST 31 (17-59) U/L Troponin I 0.316 H* 2.620 H* D Cancelled (0.000-0.034) ng/mL Coagulation 06/03/24 06/03/24 06/03/24 Range/Units 16:37 21:46 23:05 PT 13.4 13.7 13.6 (11.1-14.7) Seconds APTT 29.1 > 200.0 H* 47.6 H (22.3-36.8) Seconds 06/04/24 Range/Units 03:18 PT 13.4 (11.1-14.7) Seconds APTT 37.1 H (22.3-36.8) Seconds CBC 06/03/24 06/03/24 06/04/24 Range/Units 16:37 21:46 03:41 WBC 12.2 H 21.7 H 16.0 H (4.5-10.0) K/mm3 RBC 4.72 4.92 4.80 (4.6-6.20) M/mm3 Hgb 14.6 15.3 15.0 (14.0-18.0) g/dL Hct 42.5 43.8 41.9 L (42.0-52.0) % Plt Count 192 227 211 (150-375) k/mm3 Lymph # (Auto) 2.72 0.98 1.10 (0.9-3.2) K/mm3 [place] # (Auto) 0.6 0.2 0.1 (0.1-0.6) K/mm3 Eos # (Auto) 0.2 0.0 0.0 (0-0.3) K/mm3 Baso # (Auto) 0.1 0.1 0.0 (0.0-0.1) K/mm3 Comprehensive Metabolic Panel 06/03/24 Range/Units 16:37 Sodium 137 (137-145) mmol/L Potassium 3.6 (3.4-5.0) mmol/L Chloride 106 (98-107) mmol/L Carbon Dioxide 27 (22-30) mmol/L BUN 15 (9-20) mg/dL Creatinine 0.80 (0.7-1.3) mg/dL Glucose 128 H (65-110) mg/dL Calcium 9.3 (8.4-10.2) mg/dL AST 31 (17-59) U/L ALT 20 (6-50) U/L Alkaline Phosphatase 74 (38-126) U/L Total Protein 8.0 (6.3-8.2) g/dL Albumin 4.5 (3.5-5.1) g/dL Intake and Output 06/03/24 06/03/24 06/04/24 15:59 23:59 07:59 Intake Total 66.3 Balance 66.3 Intake: IV 66.3 Heparin Sod/D5w 100 Units/ml 25 66.3 ,000 units In 250 ml @ 1,000 UNITS/HR 10 mls/hr IV CONT . Q24H [facility] Rx#:[id number]
--- NOTE | 2024-06-04 08:02 | ADMGEN ---
This patient, Fabián Jensen, was admitted to IMU Room 212-01. Patient/family oriented to hospital policies and general routines including ID bracelet, bed and alarms, visiting hours, pain management, procedures, bathroom and other care routines, personal items, smoking policy, room service/diet, and visiting hours. Information on how to activate the Rapid Response Team has been discussed. Patient/Family are encouraged to report perceived risks to care and to ask questions if they do not understand what they are told or what they should do.
[2024-06-04] MEDS: METOPROLOL TARTRATE 12.5 MG TABLET PO ×2 (09:41→19:55)
[2024-06-04] MEDS: ASPIRIN 81 MG ENTERIC TABLET PO (09:41)
[2024-06-04] MEDS: ATORVASTATIN 40 MG TABLET PO (09:41)
[2024-06-04 10:27] LABS: Prothrombin Time 13.2 Seconds (11.1-14.7)
[2024-06-04 10:28] LABS: Partial Thromboplastin Time 66.8 Seconds (22.3-36.8)
[2024-06-04 10:31] LABS: Alanine Aminotransferase 24 U/L (6-50); Albumin Level 4.5 g/dL (3.5-5.1); Alkaline Phosphatase 77 U/L (38-126); Anion Gap 3 mmol/L (4-12); Aspartate Amino Transferase 80 U/L (17-59); Bilirubin,Total 1.2 mg/dL (0.2-1.3); Blood Urea Nitrogen 15 mg/dL (9-20); Calcium 9.4 mg/dL (8.4-10.2); Carbon Dioxide 23 mmol/L (22-30); Chloride 111 mmol/L (98-107); Cholesterol 226 mg/dL (0-200); Estimated CRCL calculation 107 ml/min; Estimated Glomerular Filt Rate > 60; Glucose 124 mg/dL (65-110); HDL Direct 50 mg/dL; Potassium 3.9 mmol/L (3.4-5.0); Sodium 137 mmol/L (137-145); Triglycerides 107 mg/dL (<150)
[2024-06-04] MEDS: HEPARIN SODIUM 5,000 UNITS/ML VIAL 3500 UNITS IV PUSH (10:46)
[2024-06-04 10:52] LABS: Magnesium 1.9 mg/dL (1.6-2.3)
[2024-06-04 10:59] LABS: Hemoglobin A1C 5.2 % (<5.7)
[2024-06-04 11:03] LABS: LDL Cholesterol Direct 135 mg/dL
--- NOTE | 2024-06-04 15:03 | PM.IMPN ---
Progress Note: A&P Assessment and Plan (1) Acute non-ST elevation myocardial infarction (NSTEMI): Code(s): I21.4 - Non-ST elevation (NSTEMI) myocardial infarction Status: Acute Assessment and Plan: Patient presents with irregular HR and bilateral arm pain. Troponin elevated to 5.4. EKG showing NSR with frequent PVCs (bigeminy), RV conduction delay, LAFB and nonspecific ST elevation. Repeat EKG showing NSR, LAD, incomplete Rt BBB and moderate T wave changes consider lateral ischemia. CTA ch/abd/pelvis showing no thoracic or abdominal aortic aneurysm or dissection. He was treated with ASA. Cardiolgoy consulted. Continue ASA. Check lipids and add Lipitor. Add metoprolol. Checkl A1c Check Echo. Cardiolgoy consulted. Plan for [facility] today. (2) Hypertension: Code(s): I10 - Essential (primary) hypertension Status: Acute Assessment and Plan: Patient's blood pressure was reviewed on 06/04 Blood pressure elevated on admission related to uncontrolled BP or in response to #1. BP better controlled. Stop Norvasc and start metoprolol (3) Leukocytosis: Code(s): D72.829 - Elevated white blood cell count, unspecified Status: Acute Assessment and Plan: WBC up to 21K felt related to steroids. he received steroids due to allergy to contrast. No evidence of infectious process (4) Tobacco abuse: Code(s): Z72.0 - Tobacco use Status: Acute Assessment and Plan: He was congratulated on smoking cessation Plan DVT prophylaxis - Heparin gtt Code status - full Subjective Date/time seen: 06/04/24 15:03 Interval history: 64yo male with HTN here for bilateral arm pain concerning for anginal equivalent. Patient states arm pain resolved after receiving aspirin in ED. No recurrence of pain. Similar symptoms 2 days priro to admission that occured with exertion. Exam Narrative: AF 97.6 139/89 76 16 97% ra Gen - NARD Chest - CTA bilaterally, nml RR CV - RRR S1/S2. Tele showing no significant dysrhytmias Abd - Soft, NT/ND, Positive BS Ext - No pedal edema Psych - Nml mood and affect Skin - Warm and dry Objective Data Vital Signs Vital Signs: Vital Signs - 24 hr 06/03/24 16:25 06/03/24 16:42 06/03/24 17:47 Temperature 97.3 F L Pulse Rate 76 63 Respiratory Rate 17 14 Blood Pressure 170/96 H 133/81 Pulse Oximetry 99 100 Oxygen Delivery Room Air Room Air 06/03/24 19:00 06/03/24 19:02 06/03/24 19:15 Temperature Pulse Rate 66 68 66 Respiratory Rate 11 L 13 13 Blood Pressure 162/100 H Pulse Oximetry 100 100 100 Oxygen Delivery 06/03/24 19:17 06/03/24 19:40 06/03/24 20:15 Temperature Pulse Rate 69 64 83 Respiratory Rate 13 11 L 13 Blood Pressure 169/109 H Pulse Oximetry 100 100 100 Oxygen Delivery 06/03/24 20:17 06/03/24 20:31 06/03/24 20:34 Temperature Pulse Rate 88 77 72 Respiratory Rate 23 H 19 18 Blood Pressure 172/96 H 161/90 H Pulse Oximetry 99 100 Oxygen Delivery 06/03/24 20:49 06/03/24 21:28 06/03/24 21:30 Temperature Pulse Rate 67 69 65 Respiratory Rate 11 L 18 13 Blood Pressure Pulse Oximetry 98 98 97 Oxygen Delivery 06/03/24 21:31 06/03/24 21:45 06/03/24 21:46 Temperature Pulse Rate 70 74 75 Respiratory Rate 15 14 13 Blood Pressure 149/95 H 159/98 H Pulse Oximetry 90 96 93 Oxygen Delivery 06/03/24 22:00 06/03/24 22:01 06/04/24 07:15 Temperature 98.7 F Pulse Rate 76 75 81 Respiratory Rate 14 16 15 Blood Pressure 162/91 H 129/75 Pulse Oximetry 98 91 99 Oxygen Delivery 06/04/24 07:15 06/04/24 08:05 06/04/24 09:41 Temperature 97.5 F L Pulse Rate 81 70 82 Respiratory Rate 16 Blood Pressure 168/88 H Pulse Oximetry 98 Oxygen Delivery 06/04/24 10:00 06/04/24 12:00 06/04/24 12:00 Temperature 97.6 F Pulse Rate 79 74 80 Respiratory Rate 16 Blood Pressure 139/89 Pulse Oximetry 98 Oxygen Delivery 06/04/24 12:07 06/04/24 14:00 Temperature Pulse Rate 76 Respiratory Rate Blood Pressure Pulse Oximetry 97 Oxygen Delivery Room Air Intake/Output Intake/Output: Intake & Output 06/01/24 06/02/24 06/03/24 12/23/24 23:59 23:59 23:59 23:59 Intake Total 163.1 Balance 163.1 Meds/Results Medications: Active Medications Generic Name Dose Route Start Last Admin Trade Name Freq PRN Reason Stop Dose Admin Acetaminophen 650 mg 06/03/24 21:36 Acetaminophen 325 Mg Tablet PO Q4H PRN Mild Pain (1-3) or Fever Aspirin 81 mg 06/04/24 09:25 06/04/24 09:41 Aspirin 81 Mg Enteric Tablet PO 81 mg QAM DELGADO Administration Atorvastatin Calcium 40 mg 06/04/24 09:25 06/04/24 09:41 Atorvastatin 40 Mg Tablet PO 40 mg DAILY DELGADO Administration Heparin Sodium (Porcine) 4,000 units 06/03/24 20:52 06/04/24 03:51 Heparin Sodium 5,000 Units/Ml Vial IV PUSH 4,000 units PRN PRN Administration aPTT less than 55 seconds Heparin Sodium (Porcine) 3,500 units 06/03/24 20:52 06/04/24 10:46 Heparin Sodium 5,000 Units/Ml Vial IV PUSH 3,500 units PRN PRN Administration aPTT 55 - 70 seconds Heparin Sodium/Dextrose 25,000 units in 250 mls @ 16 mls/hr 06/03/24 20:55 06/04/24 10:47 Heparin Sodium/D5w 100 Units/Ml IV CONT 1,600 units/hr .[id number] DELGADO 16 mls/hr Titration Protocol 1,600 UNITS/HR Metoprolol Tartrate 12.5 mg 06/04/24 09:25 06/04/24 09:41 Metoprolol Tartrate 12.5 Mg Tablet PO 12.5 mg Q12HR DELGADO Administration Ondansetron HCl 4 mg 06/03/24 21:36 Ondansetron Inj 4 Mg/2 Ml Vial IV PUSH Q4H PRN Nausea Perflutren Lipid Microsphere 0 ml 06/04/24 09:24 Perflutren Lipid Microspheres 1.5 Ml Vial Diluted To 10 Ml Total Volume IV PUSH 06/07/24 09:24 ONCE PRN adequate visualization Protocol Radiology Results: ITS Impressions Chest X-Ray 06/03/24 17:02 IMPRESSION: Mild bilateral hyperinflation; otherwise no active cardiopulmonary disease Chest/Abdomen/Pelvis CTA 06/03/24 20:37 IMPRESSION: No thoracic or abdominal aortic aneurysm or dissection Nonobstructive bilateral nephrolithiasis Normal appendix Lower Extremity CTA 06/03/24 20:47 IMPRESSION: Atherosclerotic calcifications but no significant arterial stenosis or occlusion of the lower extremities Labs Labs: Laboratory Results - last 24 hr 06/03/24 06/03/24 06/03/24 16:37 19:19 21:46 WBC 12.2 H 21.7 H RBC 4.72 4.92 Hgb 14.6 15.3 Hct 42.5 43.8 MCV 90.0 89.0 MCH 30.9 31.1 MCHC 34.4 34.9 RDW 12.3 12.3 Plt Count 192 227 MPV 8.9 9.2 Immature Gran % (Auto) 0.2 0.5 Neut % (Auto) 70.7 93.6 H Lymph % (Auto) 22.3 4.5 L [place] % (Auto) 4.9 1.0 L Eos % (Auto) 1.2 0.1 Baso % (Auto) 0.7 0.3 Lymph # (Auto) 2.72 0.98 [place] # (Auto) 0.6 0.2 Eos # (Auto) 0.2 0.0 Baso # (Auto) 0.1 0.1 Abs Immat Gran (auto) 0.03 0.11 H Absolute Neuts (auto) 8.6 H 20.3 H Absolute Nucleated RBC 0.000 0.000 Nucleated RBC % 0.0 0.0 PT 13.4 13.7 INR 1.0 1.0 APTT 29.1 > 200.0 H* D-Dimer 0.28 Sodium 137 Potassium 3.6 Chloride 106 Carbon Dioxide 27 Anion Gap 4 BUN 15 Creatinine 0.80 Estim Creat Clear Calc 94 Estimated GFR > 60 Glucose 128 H Hemoglobin A1c Calcium 9.3 Phosphorus 3.3 Magnesium 1.7 Total Bilirubin 1.1 AST 31 ALT 20 Alkaline Phosphatase 74 Troponin I 0.316 H* 2.620 H* D Total Protein 8.0 Albumin 4.5 Triglycerides Cholesterol LDL Cholesterol Direct HDL Direct Lipase 54 06/03/24 06/04/24 06/04/24 23:05 03:18 03:41 WBC 16.0 H RBC 4.80 Hgb 15.0 Hct 41.9 L MCV 87.3 MCH 31.3 MCHC 35.8 RDW 12.3 Plt Count 211 MPV 9.3 Immature Gran % (Auto) 0.4 Neut % (Auto) 91.9 H Lymph % (Auto) 6.9 L [place] % (Auto) 0.7 L Eos % (Auto) 0.0 Baso % (Auto) 0.1 L Lymph # (Auto) 1.10 [place] # (Auto) 0.1 Eos # (Auto) 0.0 Baso # (Auto) 0.0 Abs Immat Gran (auto) 0.06 H Absolute Neuts (auto) 14.8 H Absolute Nucleated RBC 0.000 Nucleated RBC % 0.0 PT 13.6 13.4 INR 1.0 1.0 APTT 47.6 H 37.1 H D-Dimer Sodium Potassium Chloride Carbon Dioxide Anion Gap BUN Creatinine Estim Creat Clear Calc Estimated GFR Glucose Hemoglobin A1c Calcium Phosphorus Magnesium Total Bilirubin AST ALT Alkaline Phosphatase Troponin I Cancelled Total Protein Albumin Triglycerides Cholesterol LDL Cholesterol Direct HDL Direct Lipase 06/04/24 10:02 WBC RBC Hgb Hct MCV MCH MCHC RDW Plt Count MPV Immature Gran % (Auto) Neut % (Auto) Lymph % (Auto) [place] % (Auto) Eos % (Auto) Baso % (Auto) Lymph # (Auto) [place] # (Auto) Eos # (Auto) Baso # (Auto) Abs Immat Gran (auto) Absolute Neuts (auto) Absolute Nucleated RBC Nucleated RBC % PT 13.2 INR 1.0 APTT 66.8 H D-Dimer Sodium 137 Potassium 3.9 Chloride 111 H Carbon Dioxide 23 Anion Gap 3 L BUN 15 Creatinine 0.70 Estim Creat Clear Calc 107 Estimated GFR > 60 Glucose 124 H Hemoglobin A1c 5.2 Calcium 9.4 Phosphorus Magnesium 1.9 Total Bilirubin 1.2 AST 80 H ALT 24 Alkaline Phosphatase 77 Troponin I 5.390 H* Total Protein 7.0 Albumin 4.5 Triglycerides 107 Cholesterol 226 H LDL Cholesterol Direct 135 HDL Direct 50 Lipase
--- NOTE | 2024-06-04 15:22 | WPDHPUPDATE1 ---
History and Physical Update Update Date/Time: 06/04/24 09:22 History and Physical has been reviewed, including an updated exam of the patient. There are NO changes in the patient's condition. Risks, benefits, and alternatives have been discussed and questions answered. Patient agrees to proceed with procedure.
--- NOTE | 2024-06-04 15:23 | P.SEDATION_ITS ---
Moderate Sedation Note-Pt Data Patient Data Allergies Allergy/AdvReac Type Severity Reaction Status Date / Time Iodinated Contrast Media Allergy Severe Difficulty Verified 06/04/24 09:59 Breathing Home Medications ?Medication ?Instructions ?Recorded ?Confirmed ?Type No Home Medications 06/04/24 06/04/24 History Current Medications: Active Medications Acetaminophen (Acetaminophen 325 Mg Tablet) 650 mg PO Q4H PRN PRN Reason: Mild Pain (1-3) or Fever Aspirin (Aspirin 81 Mg Enteric Tablet) 81 mg PO QAM [facility] Last Admin: 06/04/24 09:41 Dose: 81 mg Atorvastatin Calcium (Atorvastatin 40 Mg Tablet) 40 mg PO DAILY [facility] Last Admin: 06/04/24 09:41 Dose: 40 mg Heparin Sodium (Porcine) (Heparin Sodium 5,000 Units/Ml Vial) 4,000 units IV PUSH PRN PRN PRN Reason: aPTT less than 55 seconds Last Admin: 06/04/24 03:51 Dose: 4,000 units Heparin Sodium (Porcine) (Heparin Sodium 5,000 Units/Ml Vial) 3,500 units IV PUSH PRN PRN PRN Reason: aPTT 55 - 70 seconds Last Admin: 06/04/24 10:46 Dose: 3,500 units Heparin Sodium/Dextrose (Heparin Sodium/D5w 100 Units/Ml) 25,000 units in 250 mls @ 16 mls/hr IV CONT .[id number] [facility]; Protocol Last Titration: 06/04/24 10:47 Dose: 1,600 units/hr, 16 mls/hr Metoprolol Tartrate (Metoprolol Tartrate 12.5 Mg Tablet) 12.5 mg PO Q12HR [facility] Last Admin: 06/04/24 09:41 Dose: 12.5 mg Ondansetron HCl (Ondansetron Inj 4 Mg/2 Ml Vial) 4 mg IV PUSH Q4H PRN PRN Reason: Nausea Perflutren Lipid Microsphere (Perflutren Lipid Microspheres 1.5 Ml Vial Diluted To 10 Ml Total Volume) 0 ml IV PUSH ONCE PRN; Protocol PRN Reason: adequate visualization Stop: 06/07/24 09:24 Sedation/Anesthesia: No previous sedation/anesthesia problems (including family history). [facility] Family History Family History (Updated 06/04/24 @ 10:04 by RUBÉN REED) Mother Rheumatoid arthritis Father Malignant neoplasm of prostate Social History Social History Smoking packs per day: 1 Smoking cigarettes per day: 20.0 Years smoked: 44 Smoking pack-years: 44.00 Smoking status: Former smoker Tobacco type: cigarettes Smoking end date: 06/13/13 Alcohol intake: never Substance use: never Do You Feel Safe in your Home?: Yes Lack of Transportation: No Lack of Food: Never True Current Housing: I Have Housing Concerned About Future Housing: No Difficulty Paying Gas/Electric Bills: No Difficulty Paying for Meds: No Currently Unemployed: No Education: Trade/Vocational Certificate Difficulty w/ Childcare or Family Care: No Spiritual care concerns: No Mod Sed Physical Exam Physical Exam Pre Procedural Exam: Normal: Heart Rate and Heart Rhythm Hours since solid foods: 15 Hours since liquid intake: 15 Mallampati Classification: class II Internal Medicine - PN: Obj Da Vital Signs Vital Signs: Vital Signs - 24 hr 06/03/24 16:25 06/03/24 16:42 06/03/24 17:47 Temperature 36.3 C L Pulse Rate 76 63 Respiratory Rate 17 14 Blood Pressure 170/96 H 133/81 Pulse Oximetry 99 100 Oxygen Delivery Room Air Room Air 06/03/24 19:00 06/03/24 19:02 06/03/24 19:15 Temperature Pulse Rate 66 68 66 Respiratory Rate 11 L 13 13 Blood Pressure 162/100 H Pulse Oximetry 100 100 100 Oxygen Delivery 06/03/24 19:17 06/03/24 19:40 06/03/24 20:15 Temperature Pulse Rate 69 64 83 Respiratory Rate 13 11 L 13 Blood Pressure 169/109 H Pulse Oximetry 100 100 100 Oxygen Delivery 06/03/24 20:17 06/03/24 20:31 06/03/24 20:34 Temperature Pulse Rate 88 77 72 Respiratory Rate 23 H 19 18 Blood Pressure 172/96 H 161/90 H Pulse Oximetry 99 100 Oxygen Delivery 06/03/24 20:49 06/03/24 21:28 06/03/24 21:30 Temperature Pulse Rate 67 69 65 Respiratory Rate 11 L 18 13 Blood Pressure Pulse Oximetry 98 98 97 Oxygen Delivery 06/03/24 21:31 06/03/24 21:45 06/03/24 21:46 Temperature Pulse Rate 70 74 75 Respiratory Rate 15 14 13 Blood Pressure 149/95 H 159/98 H Pulse Oximetry 90 96 93 Oxygen Delivery 06/03/24 22:00 06/03/24 22:01 06/04/24 07:15 Temperature 37.1 C Pulse Rate 76 75 81 Respiratory Rate 14 16 15 Blood Pressure 162/91 H 129/75 Pulse Oximetry 98 91 99 Oxygen Delivery 06/04/24 07:15 06/04/24 08:05 06/04/24 09:41 Temperature 36.4 C L Pulse Rate 81 70 82 Respiratory Rate 16 Blood Pressure 168/88 H Pulse Oximetry 98 Oxygen Delivery 06/04/24 10:00 06/04/24 12:00 06/04/24 12:00 Temperature 36.4 C Pulse Rate 79 74 80 Respiratory Rate 16 Blood Pressure 139/89 Pulse Oximetry 98 Oxygen Delivery 06/04/24 12:07 06/04/24 14:00 Temperature Pulse Rate 76 Respiratory Rate Blood Pressure Pulse Oximetry 97 Oxygen Delivery Room Air Intake/Output Intake/Output: Intake & Output 06/01/24 06/02/24 06/03/24 06/04/24 23:59 23:59 23:59 23:59 Intake Total 163.1 Balance 163.1 Meds/Results Medications: Active Medications Generic Name Dose Route Start Last Admin Trade Name Freq PRN Reason Stop Dose Admin Acetaminophen 650 mg 06/03/24 21:36 Acetaminophen 325 Mg Tablet PO Q4H PRN Mild Pain (1-3) or Fever Aspirin 81 mg 06/04/24 09:25 06/04/24 09:41 Aspirin 81 Mg Enteric Tablet PO 81 mg QAM DELGADO Administration Atorvastatin Calcium 40 mg 06/04/24 09:25 06/04/24 09:41 Atorvastatin 40 Mg Tablet PO 40 mg DAILY DELGADO Administration Heparin Sodium (Porcine) 4,000 units 06/03/24 20:52 06/04/24 03:51 Heparin Sodium 5,000 Units/Ml Vial IV PUSH 4,000 units PRN PRN Administration aPTT less than 55 seconds Heparin Sodium (Porcine) 3,500 units 06/03/24 20:52 06/04/24 10:46 Heparin Sodium 5,000 Units/Ml Vial IV PUSH 3,500 units PRN PRN Administration aPTT 55 - 70 seconds Heparin Sodium/Dextrose 25,000 units in 250 mls @ 16 mls/hr 06/03/24 20:55 06/04/24 10:47 Heparin Sodium/D5w 100 Units/Ml IV CONT 1,600 units/hr .[id number] DELGADO 16 mls/hr Titration Protocol 1,600 UNITS/HR Metoprolol Tartrate 12.5 mg 06/04/24 09:25 06/04/24 09:41 Metoprolol Tartrate 12.5 Mg Tablet PO 12.5 mg Q12HR DELGADO Administration Ondansetron HCl 4 mg 06/03/24 21:36 Ondansetron Inj 4 Mg/2 Ml Vial IV PUSH Q4H PRN Nausea Perflutren Lipid Microsphere 0 ml 06/04/24 09:24 Perflutren Lipid Microspheres 1.5 Ml Vial Diluted To 10 Ml Total Volume IV PUSH 06/07/24 09:24 ONCE PRN adequate visualization Protocol Radiology Results: ITS Impressions Chest X-Ray 06/03/24 17:02 IMPRESSION: Mild bilateral hyperinflation; otherwise no active cardiopulmonary disease Chest/Abdomen/Pelvis CTA 06/03/24 20:37 IMPRESSION: No thoracic or abdominal aortic aneurysm or dissection Nonobstructive bilateral nephrolithiasis Normal appendix Lower Extremity CTA 06/03/24 20:47 IMPRESSION: Atherosclerotic calcifications but no significant arterial stenosis or occlusion of the lower extremities Labs 06/04/24 03:41 06/04/24 10:02 Labs: Laboratory Results - last 24 hr 06/03/24 06/03/24 06/03/24 16:37 19:19 21:46 WBC 12.2 H 21.7 H RBC 4.72 4.92 Hgb 14.6 15.3 Hct 42.5 43.8 MCV 90.0 89.0 MCH 30.9 31.1 MCHC 34.4 34.9 RDW 12.3 12.3 Plt Count 192 227 MPV 8.9 9.2 Immature Gran % (Auto) 0.2 0.5 Neut % (Auto) 70.7 93.6 H Lymph % (Auto) 22.3 4.5 L [place] % (Auto) 4.9 1.0 L Eos % (Auto) 1.2 0.1 Baso % (Auto) 0.7 0.3 Lymph # (Auto) 2.72 0.98 [place] # (Auto) 0.6 0.2 Eos # (Auto) 0.2 0.0 Baso # (Auto) 0.1 0.1 Abs Immat Gran (auto) 0.03 0.11 H Absolute Neuts (auto) 8.6 H 20.3 H Absolute Nucleated RBC 0.000 0.000 Nucleated RBC % 0.0 0.0 PT 13.4 13.7 INR 1.0 1.0 APTT 29.1 > 200.0 H* D-Dimer 0.28 Sodium 137 Potassium 3.6 Chloride 106 Carbon Dioxide 27 Anion Gap 4 BUN 15 Creatinine 0.80 Estim Creat Clear Calc 94 Estimated GFR > 60 Glucose 128 H Hemoglobin A1c Calcium 9.3 Phosphorus 3.3 Magnesium 1.7 Total Bilirubin 1.1 AST 31 ALT 20 Alkaline Phosphatase 74 Troponin I 0.316 H* 2.620 H* D Total Protein 8.0 Albumin 4.5 Triglycerides Cholesterol LDL Cholesterol Direct HDL Direct Lipase 54 06/03/24 06/04/24 06/04/24 23:05 03:18 03:41 WBC 16.0 H RBC 4.80 Hgb 15.0 Hct 41.9 L MCV 87.3 MCH 31.3 MCHC 35.8 RDW 12.3 Plt Count 211 MPV 9.3 Immature Gran % (Auto) 0.4 Neut % (Auto) 91.9 H Lymph % (Auto) 6.9 L [place] % (Auto) 0.7 L Eos % (Auto) 0.0 Baso % (Auto) 0.1 L Lymph # (Auto) 1.10 [place] # (Auto) 0.1 Eos # (Auto) 0.0 Baso # (Auto) 0.0 Abs Immat Gran (auto) 0.06 H Absolute Neuts (auto) 14.8 H Absolute Nucleated RBC 0.000 Nucleated RBC % 0.0 PT 13.6 13.4 INR 1.0 1.0 APTT 47.6 H 37.1 H D-Dimer Sodium Potassium Chloride Carbon Dioxide Anion Gap BUN Creatinine Estim Creat Clear Calc Estimated GFR Glucose Hemoglobin A1c Calcium Phosphorus Magnesium Total Bilirubin AST ALT Alkaline Phosphatase Troponin I Cancelled Total Protein Albumin Triglycerides Cholesterol LDL Cholesterol Direct HDL Direct Lipase 06/04/24 10:02 WBC RBC Hgb Hct MCV MCH MCHC RDW Plt Count MPV Immature Gran % (Auto) Neut % (Auto) Lymph % (Auto) [place] % (Auto) Eos % (Auto) Baso % (Auto) Lymph # (Auto) [place] # (Auto) Eos # (Auto) Baso # (Auto) Abs Immat Gran (auto) Absolute Neuts (auto) Absolute Nucleated RBC Nucleated RBC % PT 13.2 INR 1.0 APTT 66.8 H D-Dimer Sodium 137 Potassium 3.9 Chloride 111 H Carbon Dioxide 23 Anion Gap 3 L BUN 15 Creatinine 0.70 Estim Creat Clear Calc 107 Estimated GFR > 60 Glucose 124 H Hemoglobin A1c 5.2 Calcium 9.4 Phosphorus Magnesium 1.9 Total Bilirubin 1.2 AST 80 H ALT 24 Alkaline Phosphatase 77 Troponin I 5.390 H* Total Protein 7.0 Albumin 4.5 Triglycerides 107 Cholesterol 226 H LDL Cholesterol Direct 135 HDL Direct 50 Lipase ASA Classification/Sedation ASA Classification/Sedation ASA Class: III Emergent: No Risks: Risks, benefits and alternatives explained and patient/family accepted plan for sedation. Patient re-evaluated immediately prior to sedation.
--- NOTE | 2024-06-04 15:23 | WPDCARDPROC ---
Cardiac Cath Procedure Note Date of procedure:: 06/04/24 Performing physician:: CATHETERIZATION LABORATORY REPORT Procedure Date: 06/04/2024 Referring Physician: Dr. Saucedo Anesthesia: Versed and Fentanyl were ordered and given in my presence at 1455, procedure ended at 1507. Supervision of nurse, Isaias Kendall monitored moderate sedation with 2mg Versed and 100mcg Fentanyl was provided for 12 minutes. Pre-op Diagnosis: NSTEMI Post-op Diagnosis: NSTEMI Procedure(s): Left heart catheterization with coronary angiography Access Site: Right radial artery Brief History and Clinical Indications: All risks, benefits and alternatives to left heart catheterization with or without percutaneous coronary intervention was discussed at length with the patient. Risk of complications including but not limited to bleeding, infection, arrhythmia, stroke, worsening kidney function, blood loss, groin hematoma, limb loss, emergency coronary artery bypass grafting, and even were discussed with the patient and all questions were answered. The patient understood and wished to proceed. Time out called, patient name, date of , medical record number, allergies, procedure performed, identify Benefits Analyst, patient and staff member concurred with accurate data, procedure carried on. Findings: LEFT HEART CATHETERIZATION FINDINGS: 1. Left main: The left main coronary artery has a distal 30-40% stenosis. 2. Left anterior descending: The LAD gives off 1 moderate-size diagonal that further branches off into 2 vessels, 1 of which has a 95% ostial/proximal stenosis. The ostial to proximal LAD has an ulcerated 70% stenosis. This is followed by a 70-99% ulcerated lesion in the mid body of the LAD. 3. Left circumflex: The ostial left circumflex has a 50% stenosis. The remainder of the system has luminal irregularities. 4. Right coronary artery: The RCA is a large dominant vessel. In its proximal body there is a 70-80% stenosis. The right PDA in its mid body has a 90% stenosis. 5. Ramus intermedius is a large caliber vessel that branches into 2 vessels. The system has luminal irregularities. 5. Left ventricle: A. End-diastolic pressure 20 mmHg. B. LV gram deferred. C. No significant gradient across aortic valve on catheter pullback. 6. Opening AO pressure 131/83 and closing AO pressure 136/79 Description of Procedure: Informed consent signed and placed in the chart. Patient transferred to microbiology laboratory manager room. Prepped and aped in usual sterile fashion. 2% lidocaine injected subcutaneously in right wrist area. 22-gauge venipuncture catheter used to access the right radial artery with the Seldinger technique. 6-FR slender sheath placed in right radial artery. Nitroglycerin 200mcg, Verapamil 2.5mg, and Heparin 5000U was given intraarterial through the sheath. J wire advanced under fluoroscopy 5F TIG diagnostic catheter engaged Left Main Coronary Artery. 5F TIG diagnostic catheter engaged Right Coronary Artery Multiple orthogonal angiogram obtained and reviewed 5F Pigtail diagnostic catheter crossed aortic valve to obtain LVEDP, LV angiogram deferred. Hemostasis was achieved by application of TR band. Assessment: Multivessel CAD Post Operative Condition: Stable No significant blood loss Disposition: Transfer to CTS capable facility Plan: The patient will be monitored in the recovery area. CTS consult Wilfred Wang Interventional Cardiology
--- NOTE | 2024-06-04 19:07 | P.TS_ITS ---
Transfer Discharge Sum: Prov Provider Date of admission: 06/03/24 21:36 Primary care physician: PHYSICIAN NOT ON STAFF Admitting clinician: Sarai Jim MD Consults: 06/03/24 Consult to Physician Routine Comment: Consulting Provider: Veronica Chung Reason for consultation: NSTEMI, EFREM Has provider been notified: Yes DS: Admitting Diagnosis Discharge Date 06/04/24 Admitting Diagnosis Chest pain DS: Discharge Diagnosis Discharge Diagnosis (1) Acute non-ST elevation myocardial infarction (NSTEMI): Code(s): I21.4 - Non-ST elevation (NSTEMI) myocardial infarction Status: Acute (2) CAD (coronary artery disease): Code(s): I25.10 - Atherosclerotic heart disease of [place] coronary artery without angina pectoris Status: Acute (3) Hypertension: Code(s): I10 - Essential (primary) hypertension Status: Acute (4) Leukocytosis: Code(s): D72.829 - Elevated white blood cell count, unspecified Status: Acute (5) Tobacco abuse: Code(s): Z72.0 - Tobacco use Status: Acute Transfer Discharge Sum: Med Medications Active and Home Medications: Home Medications No Home Medications 06/04/24 [History Confirmed 06/04/24] Active Medications Acetaminophen (Acetaminophen 325 Mg Tablet) 650 mg PO Q4H PRN PRN Reason: Mild Pain (1-3) or Fever Aspirin (Aspirin 81 Mg Enteric Tablet) 81 mg PO QAM [facility] Last Admin: 06/04/24 09:41 Dose: 81 mg Atorvastatin Calcium (Atorvastatin 40 Mg Tablet) 40 mg PO DAILY [facility] Last Admin: 06/04/24 09:41 Dose: 40 mg Heparin Sodium (Porcine) (Heparin Sodium 5,000 Units/Ml Vial) 4,000 units IV PUSH PRN PRN PRN Reason: aPTT less than 55 seconds Last Admin: 06/04/24 03:51 Dose: 4,000 units Heparin Sodium (Porcine) (Heparin Sodium 5,000 Units/Ml Vial) 3,500 units IV PUSH PRN PRN PRN Reason: aPTT 55 - 70 seconds Last Admin: 06/04/24 10:46 Dose: 3,500 units Heparin Sodium/Dextrose (Heparin Sodium/D5w 100 Units/Ml) 25,000 units in 250 mls @ 16 mls/hr IV CONT .[id number] [facility]; Protocol Last Titration: 06/04/24 10:47 Dose: 1,600 units/hr, 16 mls/hr Metoprolol Tartrate (Metoprolol Tartrate 12.5 Mg Tablet) 12.5 mg PO Q12HR [facility] Last Admin: 06/04/24 09:41 Dose: 12.5 mg Ondansetron HCl (Ondansetron Inj 4 Mg/2 Ml Vial) 4 mg IV PUSH Q4H PRN PRN Reason: Nausea Perflutren Lipid Microsphere (Perflutren Lipid Microspheres 1.5 Ml Vial Diluted To 10 Ml Total Volume) 0 ml IV PUSH ONCE PRN; Protocol PRN Reason: adequate visualization Stop: 06/07/24 09:24 Transfer Discharge Sum: Hosp Hospital Course Hospital course: Fabián Jensen is a 64yo male with HTN here for bilateral arm pain concerning for anginal equivalent. Please see H&P for details. Patient presented with irregular HR and bilateral arm pain. Troponin elevated to 5.4. EKG showing NSR with frequent PVCs (bigeminy), RV conduction delay, LAFB and nonspecific ST elevation. Repeat EKG showing NSR, LAD, incomplete Rt BBB and moderate T wave changes consider lateral ischemia. CTA ch/abd/pelvis showing no thoracic or abdominal aortic aneurysm or dissection. Blood pressure was elevated on admission related to either uncontrolled BP or in response to pain. BP became better controlled. Norvasc stopped and started on metoprolol. He was treated with ASA. Cardiology consulted. WBC was elevated to 21K felt related to steroids. He received steroids due to allergy to contrast. He was congratulated on smoking cessation. Echo shoing severe concentric LVH with EF 45-50% and hypokinetic segments. Also with moderate pericardial effusion. Please see report for details. He underwent LHC on 06/04/24 which showed significant multivessel cardiac disease. Please see report for details. Patient was transferred to tertiary care center for cardiothoracic surgery evaluation and possible surgery. He was transferred in stable condition. Time Spent with Patient Time attestation: Total time spent providing and/or coordinating transfer services: 34 minutes Total time spent: Greater than 30 minutes Exam Narrative: AF 97.6 139/89 76 16 97% ra Gen - NARD Chest - CTA bilaterally, nml RR CV - RRR S1/S2. Tele showing no significant dysrhytmias Abd - Soft, NT/ND, Positive BS Ext - No pedal edema Psych - Nml mood and affect Skin - Warm and dry DS: Data Data Completed and Pending Labs on day of discharge: Labs from last 24 hours 06/04/24 06/04/24 06/04/24 10:02 03:41 03:18 WBC 16.0 H RBC 4.80 Hgb 15.0 Hct 41.9 L MCV 87.3 MCH 31.3 MCHC 35.8 RDW 12.3 Plt Count 211 MPV 9.3 Immature Gran % (Auto) 0.4 Neut % (Auto) 91.9 H Lymph % (Auto) 6.9 L Archer % (Auto) 0.7 L Eos % (Auto) 0.0 Baso % (Auto) 0.1 L Lymph # (Auto) 1.10 Archer # (Auto) 0.1 Eos # (Auto) 0.0 Baso # (Auto) 0.0 Abs Immat Gran (auto) 0.06 H Absolute Neuts (auto) 14.8 H Absolute Nucleated RBC 0.000 Nucleated RBC % 0.0 PT 13.2 13.4 INR 1.0 1.0 APTT 66.8 H 37.1 H Sodium 137 Potassium 3.9 Chloride 111 H Carbon Dioxide 23 Anion Gap 3 L BUN 15 Creatinine 0.70 Estim Creat Clear Calc 107 Estimated GFR > 60 Glucose 124 H Hemoglobin A1c 5.2 Calcium 9.4 Magnesium 1.9 Total Bilirubin 1.2 AST 80 H ALT 24 Alkaline Phosphatase 77 Troponin I 5.390 H* Cancelled Total Protein 7.0 Albumin 4.5 Triglycerides 107 Cholesterol 226 H LDL Cholesterol Direct 135 HDL Direct 50 06/03/24 06/03/24 06/03/24 23:05 21:46 19:19 WBC 21.7 H RBC 4.92 Hgb 15.3 Hct 43.8 MCV 89.0 MCH 31.1 MCHC 34.9 RDW 12.3 Plt Count 227 MPV 9.2 Immature Gran % (Auto) 0.5 Neut % (Auto) 93.6 H Lymph % (Auto) 4.5 L Archer % (Auto) 1.0 L Eos % (Auto) 0.1 Baso % (Auto) 0.3 Lymph # (Auto) 0.98 Archer # (Auto) 0.2 Eos # (Auto) 0.0 Baso # (Auto) 0.1 Abs Immat Gran (auto) 0.11 H Absolute Neuts (auto) 20.3 H Absolute Nucleated RBC 0.000 Nucleated RBC % 0.0 PT 13.6 13.7 INR 1.0 1.0 APTT 47.6 H > 200.0 H* Sodium Potassium Chloride Carbon Dioxide Anion Gap BUN Creatinine Estim Creat Clear Calc Estimated GFR Glucose Hemoglobin A1c Calcium Magnesium Total Bilirubin AST ALT Alkaline Phosphatase Troponin I 2.620 H* D Total Protein Albumin Triglycerides Cholesterol LDL Cholesterol Direct HDL Direct
--- NOTE | 2024-06-04 20:10 | PC.NURSE ---
2005: Patient care transferred to [facility]. Jas Alejandre at [facility] notified.
== END 2024-06-04 20:05 | disposition short-term general hospital (02) | DRG 282 ==
LOC: ANHED 21:36 → ANHIMU 21:53
PROVIDERS: Emergency Medicine; Internal Medicine; Admitting Provider Internal Medicine; Emergency Provider Student in an Organized Health Care Education/Training Program; Visit Provider Internal Medicine
PROC: 4A023N7 Measurement of Cardiac Sampling and Pressure, Left Heart, Percutaneous Approach (ICD-10-PCS; CPT 93452; principal; 2024-06-04 13:00)
DX: I21.4 Non-ST elevation (NSTEMI) myocardial infarction (principal); I25.10 Atherosclerotic heart disease of native coronary artery without angina pectoris; I10 Essential (primary) hypertension; Z87.891 Personal history of nicotine dependence
CPT/HCPCS: 36415; 71046; 71275; 73706; 74174; 80053; 80061; 83036; 83690; 83735; 84100; 84484; 85025; 85380; 85610; 85730; 93005; 93306; 93458; 96374; 96375; 99285; A9270; C1769; C1887; C1894; J0171; J1200; J1644; J1720; J2003; J2250; J2305; J2919; J3010; J7040; J7512; Q9967